=== PATIENT | male | born 1960 | race Caucasian/White ===

== ENCOUNTER 2019-10-20 08:03 | Emergency (ER) | payer SELFPAY ==
[2019-10-20 08:08] VITALS: BMI 20.2
[2019-10-20 10:02] LABS: BASO % 0.9 % (0-2.0); EOS % 0.2 % (0-4.5); HEMATOCRIT 40.1 % (35.4-49); HEMOGLOBIN 13.2 GM/dL (11.7-16.9); LYMPH % 6.2 % (8-40); MCH 30.8 pg (25.7-33.7); MEAN CELL VOLUME 93.4 fl (80-96); MEAN PLT VOLUME 10.5 fl (7.5-11.1); MONO % 10.8 % (3.8-10.2); NEUT % 81.9 % (42.8-82.8); PLATELET COUNT 346 K/MM3 (134-434); RDW 12.6 % (11.9-15.9); WHITE BLOOD COUNT 17.9 K/mm3 (4.0-10.0)
[2019-10-20 10:23] LABS: ALBUMIN 3.3 g/dl (3.4-5.0); BILIRUBIN,TOTAL 0.9 mg/dL (0.2-1); BLOOD UREA NITROGEN 21.1 mg/dL (7-18); CALCIUM 9.1 mg/dL (8.5-10.1); CREATININE 0.7 mg/dL (0.55-1.3); POTASSIUM 5.1 mmol/L (3.5-5.1); TOT PROT 7.8 g/dl (6.4-8.2)
[2019-10-20 11:22] LABS: PH,URINE 5.5 (5.0-8.0); URINE APPEARANCE Turbid; URINE BILIRUBIN Negative (NEGATIVE); URINE COLOR Yellow; URINE GLUCOSE (UA) Negative (NEGATIVE); URINE KETONE Negative (NEGATIVE); URINE LEUK ESTERASE Negative (NEGATIVE); URINE NITRITE Negative (NEGATIVE); URINE PROTEIN Negative (NEGATIVE)
[2019-10-20 12:19] VITALS: BP 126/78; PULSE 78; TEMP 98.5
[2019-10-20 14:58] LABS: EPI CELLS 2 /uL (0-25.1); HYALINE CASTS 0 /uL (0-3.1); URINE BACTERIA 8 /uL (0-1359); URINE RBC 17 /uL (0-23.9); URINE WBC 2 /uL (0-25.8)
--- NOTE | 2019-10-20 17:48 | EKG ---
Test Reason : Blood Pressure : / mmHG Vent. Rate : 082 BPM Atrial Rate : 082 BPM P-R Int : 160 ms QRS Dur : 090 ms QT Int : 364 ms P-R-T Axes : 071 076 058 degrees QTc Int : 425 ms SINUS RHYTHM WITH OCCASIONAL PREMATURE VENTRICULAR COMPLEXES VOLTAGE CRITERIA FOR LEFT VENTRICULAR HYPERTROPHY ST ELEVATION, CONSIDER EARLY REPOLARIZATION, PERICARDITIS, OR INJURY ABNORMAL ECG NO PREVIOUS ECGS AVAILABLE Confirmed by MD Gloria, Brock ([id number]) on 10/20/2019 5:47:59 PM Referred By: Confirmed By:Brock Castro MD
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
== END 2019-10-20 12:18 | disposition home or self-care (01) ==
LOC: JER 08:03
DX: H66.91 Otitis media, unspecified, right ear (principal)
CPT/HCPCS: 36415; 71045-TC-FY; 80053; 81003; 82550; 85025; 87086; 93005; 93010; 99283-25

== ENCOUNTER 2020-02-20 02:35 | Emergency (ER) | payer OTHER ==
[2020-02-20 03:08] VITALS: BMI 21.9
[2020-02-20 03:57] LABS: BASO % 0.6 % (0-2.0); EOS % 0.9 % (0-4.5); HEMATOCRIT 43.7 % (35.4-49); HEMOGLOBIN 14.4 GM/dL (11.7-16.9); LYMPH % 20.3 % (8-40); MCH 30.8 pg (25.7-33.7); MCHC 32.9 g/dl (32.0-35.9); MEAN CELL VOLUME 93.8 fl (80-96); MONO % 7.2 % (3.8-10.2); PLATELET COUNT 280 K/MM3 (134-434); RBC 4.66 M/mm3 (4.00-5.60); RDW 12.7 % (11.9-15.9)
[2020-02-20 04:14] LABS: INR 0.91 (0.83-1.09)
[2020-02-20 04:17] LABS: ACTIVATED PTT 31.4 SECONDS (25.2-36.5)
[2020-02-20 04:25] LABS: POTASSIUM 4.9 mmol/L (3.5-5.1)
[2020-02-20] MEDS ORDERED: LORazepam 2 MG/ML SDV VIAL ONE (04:25)
[2020-02-20 04:27] LABS: CALCIUM 9.1 mg/dL (8.5-10.1)
[2020-02-20 04:28] LABS: MAGNESIUM 2.7 mg/dL (1.8-2.4)
[2020-02-20 04:31] LABS: CREATININE 0.7 mg/dL (0.55-1.3); PHOSPHOROUS 4.6 mg/dL (2.5-4.9)
[2020-02-20 04:32] LABS: BILIRUBIN,TOTAL 0.2 mg/dL (0.2-1)
[2020-02-20 04:33] LABS: TOT PROT 8.2 g/dl (6.4-8.2)
[2020-02-20 10:13] VITALS: BP 110/73; PULSE 69; TEMP 97.9
== END 2020-02-20 10:45 | disposition home or self-care (01) ==
LOC: JER 02:35
PROC: 3E033NZ Introduction of Analgesics, Hypnotics, Sedatives into Peripheral Vein, Percutaneous Approach (ICD-10-PCS; principal; 2020-02-20)
DX: S06.0X1A Concussion with loss of consciousness of 30 minutes or less, initial encounter (principal); F10.10 Alcohol abuse, uncomplicated; W19.XXXA Unspecified fall, initial encounter
CPT/HCPCS: 36415; 70450-TC; 71045-TC-FY; 72125-TC; 80053; 83735; 84100; 85025; 85610; 85730; 93005; 93010; 99285-25